=== PATIENT | male | born 1985 | race Caucasian/White ===

== ENCOUNTER 2017-10-02 18:50 | Emergency (ER) | payer BC ==
--- NOTE | 2017-10-02 19:24 | EDM.PDOC ---
ED HPI GENERAL MEDICAL PROBLEM - General Chief Complaint: Genitourinary Problem Time Seen by Provider: 10/02/17 21:05 Source of Information: Reports: Patient History Limitations: Reports: No Limitations - History of Present Illness INITIAL COMMENTS - FREE TEXT/NARRATIVE: HISTORY AND PHYSICAL: History of present illness: [Angelica is a 32-year-old male here for testicular pain. Patient states that he was having intercourse with his 2 night ago, reports his penis hit her perineum and he felt a pop and immediately "went limp." He states he developed pain in the left testicle follow this that has not gotten better. The pain in the penis has resolved and he has had an erection since then without any pain or deformity. He denies any penile discharge, dysuria, fevers, chills, nausea, vomiting, abdominal pain. He reports he is taking tylenol and motrin without relief.] Review of systems: As per history of present illness and below otherwise all systems reviewed and negative. Past medical history: As per history of present illness and as reviewed below otherwise noncontributory. Surgical history: As per history of present illness and as reviewed below otherwise noncontributory. Social history: No reported history of drug or alcohol abuse. Family history: As per history of present illness and as reviewed below otherwise noncontributory. Physical exam: General: patient sitting comfortably in no acute distress HEENT: Atraumatic, normocephalic, pupils reactive, negative for conjunctival pallor or scleral icterus. Lungs: Clear to auscultation, breath sounds equal bilaterally, chest nontender. Heart: S1S2, regular, negative for clicks, rubs, or JVD. Abdomen: Soft, nondistended, nontender. Negative for masses or hepatosplenomegaly. Negative for costovertebral tenderness. Genitourinary: Mild swelling noted to the right scrotum. Tenderness to palpation of the right testicle and epididymis. No tenderness of left testicle or penis. Normal cremaster reflex. Rectal: Deferred. Extremities: Atraumatic, negative for cords or calf pain. Neurovascular unremarkable. Neuro: Awake, alert, oriented. Cranial nerves II through XII unremarkable. Cerebellum unremarkable. Motor and sensory unremarkable throughout. Exam nonfocal. Notes: Diagnostics: [US duplex scrotum UA, urine gonorrhea/chlamydia] Therapeutics: [Diclofenac 75mg BID PRN pain] Impression: [Subcutaneous hematoma scrotum] Plan: [#1 take anti-inflammatory as needed as discussed #2 Follow up with urology #3 Return to ED as needed as discussed. ] Definitive disposition and diagnosis as appropriate pending reevaluation and review of above. right scrotum Pain Score (Numeric/FACES): 8 - Related Data Allergies Allergy/AdvReac Type Severity Reaction Status Date / Time Sulfa (Sulfonamide Allergy Itching Verified 10/02/17 19:09 Antibiotics) Home Meds: Home Meds Diclofenac Sodium [Voltaren] 75 mg PO BIDMEALS 10 Days #20 tab.cr 10/02/17 [Rx] Past Medical History - Past Health History Medical/Surgical History: Denies Medical/Surgical History - Infectious Disease History Infectious Disease History: Reports: Shingles Social & Family History - Family History Family Medical History: Noncontributory - Tobacco Use Smoking Status *Q: Current Every Day Smoker Years of Tobacco use: 3 Packs/Tins Daily: 0.2 - Caffeine Use Caffeine Use: Reports: Coffee, Energy Drinks - Recreational Drug Use Recreational Drug Use: No ED ROS GENERAL - Review of Systems Review Of Systems: ROS reveals no pertinent complaints other than HPI. ED EXAM, RENAL/ - Physical Exam Exam: See Below (see dictation) Course - Vital Signs Last Recorded V/S: Last Vital Signs Temp 36.6 C 10/02/17 20:38 Pulse 75 10/02/17 20:38 Resp 17 10/02/17 20:38 BP 125/82 10/02/17 20:38 Pulse Ox 97 10/02/17 20:38 - Orders/Labs/Meds Orders: Active Orders 24 hr Category Date Time Status Scrotal Duplex Ltd [US] Stat Exams 10/02/17 19:22 Taken Scrotum and Contents [US] Routine Exams 10/02/17 Taken CHLAMYDIA AND GONORRHEA BY TMA Stat Lab 10/02/17 19:13 Received UA W/MICROSCOPIC [URIN] Stat Lab 10/02/17 19:13 Ordered Labs: Laboratory Tests 10/02/17 Range/Units 19:13 Urine Color YELLOW Urine Appearance CLEAR Urine pH 6.5 (5.0-8.0) Ur Specific [place] 1.025 (1.001-1.035) Urine Protein 30 (NEGATIVE) mg/dL Urine Glucose (UA) NEGATIVE (NEGATIVE) mg/dL Urine Ketones NEGATIVE (NEGATIVE) mg/dL Urine Occult Blood NEGATIVE (NEGATIVE) Urine Nitrite NEGATIVE (NEGATIVE) Urine Bilirubin NEGATIVE (NEGATIVE) Urine Urobilinogen 1.0 (<2.0) EU/dL Ur Leukocyte Esterase NEGATIVE (NEGATIVE) Urine RBC 0-1 (0-2/HPF) Urine WBC 0-2 (0-5/HPF) Ur Epithelial Cells RARE (NONE-FEW) Urine Bacteria FEW (NEGATIVE) Departure - Departure Time of Disposition: 21:03 Disposition: Home, Self-Care 01 Condition: Good Clinical Impression: Hematoma of scrotum - Discharge Information Prescriptions: Diclofenac Sodium [Voltaren] 75 mg PO BIDMEALS 10 Days #20 tab.cr Referrals: PCP,None [Primary Care Provider] - Forms: ED Department Discharge Additional Instructions: The following information is given to patients seen in the emergency department who are being discharged to home. This information is to outline your options for follow-up care. We provide all patients seen in our emergency department with a follow-up referral. The need for follow-up, as well as the timing and circumstances, are variable depending upon the specifics of your emergency department visit. If you don't have a primary care physician on staff, we will provide you with a referral. We always advise you to contact your personal physician following an emergency department visit to inform them of the circumstance of the visit and for follow-up with them and/or the need for any referrals to a consulting specialist. The emergency department will also refer you to a specialist when appropriate. This referral assures that you have the opportunity for follow-up care with a specialist. All of these measure are taken in an effort to provide you with optimal care, which includes your follow-up. Under all circumstances we always encourage you to contact your private physician who remains a resource for coordinating your care. When calling for follow-up care, please make the office aware that this follow-up is from your recent emergency room visit. If for any reason you are refused follow-up, please contact the [facility] Emergency Department at and asked to speak to the emergency department charge nurse. [facility] [address] [place] [id number] [facility] Urology [facility] [place] [address] #1 take anti-inflammatory as needed as discussed #2 Follow up with urology #3 Return to ED as needed as discussed - My Orders Last 24 Hours: My Active Orders 10/02/17 19:13 CHLAMYDIA AND GONORRHEA BY TMA Stat UA W/MICROSCOPIC [URIN] Stat 10/02/17 19:22 Scrotal Duplex Ltd [US] Stat - Assessment/Plan Last 24 Hours: My Active Orders 10/02/17 19:13 CHLAMYDIA AND GONORRHEA BY TMA Stat UA W/MICROSCOPIC [URIN] Stat 10/02/17 19:22 Scrotal Duplex Ltd [US] Stat
--- NOTE | 2017-10-03 13:01 | US ---
EXAM DATE: 10/02/17 PATIENT'S AGE: 32 Patient: DARLING HARRIS Facility: [place], [place] Site . Site : 1985 Study: US Testicle Bilateral [id number]/[id number] 8:31:45 PM Ordering Physician: Doctor Kelsey Final Report: INDICATION: Bilateral scrotal pain following intercourse TECHNIQUE: Ultrasound scrotum and contents. Real-time lujan scale sonographic images with spectral and color Doppler imaging of the testicles were obtained. COMPARISON: None FINDINGS: Right testis: 4.5 x 2.5 x 2.5 cm. The right testis is appearance and echotexture. Normal arterial and venous blood flow seen in the right testis. Left testis: 3.8 x 2.9 x 2.6 cm. The left testis is appearance and echotexture. Normal arterial and venous blood flow seen in the left testis. Epididymis: A large simple cyst is present within the left epididymal head measuring 2 x 2 x 1.3 cm. Normal and symmetric blood flow seen in the epididymis. Soft tissue: No significant hydrocele or varicocele noted. No adenopathy is seen. There may be complex fluid present under the scrotal skin along the midline. IMPRESSIONS: 1. Both testis are unremarkable in appearance. 2. There may be complex fluid present under the scrotal skin along the midline. This may represent a subcutaneous hematoma and correlation with physical exam and follow-up recommended. Dictated by Louie Tesfaye MD @ 10/02/2017 8:45:45 PM Dictated by: Louie Tesfaye MD @ 10/02/2017 20:45:50 (Electronic Signature) Report Signed by Proxy. PEREZ
--- NOTE | 2017-10-03 13:01 | US ---
EXAM DATE: 10/02/17 PATIENT'S AGE: 32 Patient: DARLING HARRIS Facility: [place], [place] Site . Site : 1985 Study: US Testicle Bilateral [id number]/10/2018 8:31:45 PM Ordering Physician: Doctor Kelsey Final Report: INDICATION: Bilateral scrotal pain following intercourse TECHNIQUE: Ultrasound scrotum and contents. Real-time lujan scale sonographic images with spectral and color Doppler imaging of the testicles were obtained. COMPARISON: None FINDINGS: Right testis: 4.5 x 2.5 x 2.5 cm. The right testis is appearance and echotexture. Normal arterial and venous blood flow seen in the right testis. Left testis: 3.8 x 2.9 x 2.6 cm. The left testis is appearance and echotexture. Normal arterial and venous blood flow seen in the left testis. Epididymis: A large simple cyst is present within the left epididymal head measuring 2 x 2 x 1.3 cm. Normal and symmetric blood flow seen in the epididymis. Soft tissue: No significant hydrocele or varicocele noted. No adenopathy is seen. There may be complex fluid present under the scrotal skin along the midline. IMPRESSIONS: 1. Both testis are unremarkable in appearance. 2. There may be complex fluid present under the scrotal skin along the midline. This may represent a subcutaneous hematoma and correlation with physical exam and follow-up recommended. Dictated by Louie Tesfaye MD @ 10/02/2017 8:45:45 PM Dictated by: Louie Tesfaye MD @ 10/02/2017 20:45:50 (Electronic Signature) Report Signed by Proxy. PEREZ
== END 2017-10-02 21:20 | disposition home or self-care (01) ==
LOC: MW.ED 18:50
DX: S30.22XA Contusion of scrotum and testes, initial encounter (principal); X50.9XXA Other and unspecified overexertion or strenuous movements or postures, initial encounter; F17.210 Nicotine dependence, cigarettes, uncomplicated; Z88.2 Allergy status to sulfonamides
CPT/HCPCS: 76870; 76870-26; 81001; 87491; 87591; 93976; 93976-26; 99284-25